=== PATIENT | female | born 1960 | race African-American/Black ===

== ENCOUNTER 2020-01-02 14:05 | Emergency (ER) | payer OTHER ==
[~2020-01-02] VITALS: Ht 162.6 cm; Wt 95.3 kg
[2020-01-02] MEDS ORDERED: GLIPIZIDE5 MG ORAL (14:33)
[2020-01-02] MEDS ORDERED: METFORMIN HCL500 M1 ORAL (14:33)
[2020-01-02] MEDS ORDERED: ALBUTEROL SULF8.5 G1 INH (14:33)
[2020-01-02 14:39] VITALS: BP 118/84
[2020-01-02] MEDS ORDERED: Fluorescein Strips LEFT EYE ONE (15:15)
[2020-01-02] MEDS ORDERED: Tetracaine 0.5% Opth 4ml Soln LEFT EYE ONE (15:15)
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
[2020-01-02] MEDS ORDERED: Excedrin Migraine tab ORAL ONE (16:45)
--- NOTE | 2020-01-02 17:00 | Diagnostic Imaging Report ---
Indication: Facial pain Technique: CT orbits/sella turcica was performed utilizing automated exposure control without intravenous contrast material. Axial and coronal images were generated. CT dose: Total DLP 173.1 mGycm; CTDI vol 15.3 mGy Comparison: None Findings: No acute fracture is identified. The mandible, midface and nasal bones are intact. The orbits are unremarkable. Extraocular muscles are normal in configuration. There is a moderate size mucus retention cyst in the right maxillary sinus. There is mild left maxillary sinus mucosal thickening. There is mucosal thickening in multiple ethmoid air cells. Small osteoma is noted in the left frontal sinus. There is mild mucosal thickening in the sphenoid sinuses. The nasal septum is midline. The sella is noted to be mildly expanded with a relative possibility of soft tissue. Visualized intracranial compartment is otherwise unremarkable. Impression: 1. No acute maxillofacial fracture. 2. Mild sinus disease as described above. 3. Mildly expanded sella with posterior soft tissue, which can be seen as sequelae of empty sella syndrome. The CT scanner at [facility] is accredited by the [employer] and the scans are performed using protocols designed to limit radiation exposure to as low as reasonably achievable to attain images of sufficient resolution adequate for diagnostic evaluation.
[2020-01-02] MEDS ORDERED: EXCEDRIN MIGRA1 EACH PO (17:09)
[2020-01-02 17:21] VITALS: BP 122/80
== END 2020-01-02 17:20 | disposition home or self-care (01) ==
LOC: EMR 14:55
DX: H57.12 Ocular pain, left eye (principal); R51 Headache; E11.9 Type 2 diabetes mellitus without complications; Z88.0 Allergy status to penicillin; J32.9 Chronic sinusitis, unspecified; D16.4 Benign neoplasm of bones of skull and face
CPT/HCPCS: 70480; 99284